=== PATIENT | female | born 1990 | race Caucasian/White ===

== ENCOUNTER 2016-12-01 03:56 | Inpatient (IN) | payer OTHER, BC ==
[2016-12-01] MEDS ORDERED: Sodium Chloride 0.9% 10 ML Syringe FLUSH PRN (08:31)
--- NOTE | 2016-12-01 08:38 | PCM.LDHP ---
L&D History of Present Illness - General Date of Service: 12/01/16 Admit Problem/Dx: Admission Diagnosis/Problem Admission Diagnosis/Problem Source of Information: Patient History Limitations: Reports: No Limitations - History of Present Illness Introduction:: 26 year old at 39+ here for induction of labor. Irregular contractions. H&P Review of Systems - Review of Systems: Review Of Systems: See Below General: Reports: No Symptoms HEENT: Reports: No Symptoms Pulmonary: Reports: No Symptoms Cardiovascular: Reports: No Symptoms Gastrointestinal: Reports: No Symptoms Genitourinary: Reports: No Symptoms Musculoskeletal: Reports: No Symptoms Skin: Reports: No Symptoms Psychiatric: Reports: No Symptoms Neurological: Reports: No Symptoms Hematologic/Lymphatic: Reports: No Symptoms Immunologic: Reports: No Symptoms L&D Exam - Exam Exam: See Below - OB Specific Contraction Intensity: Irritability Movement: Active Presentation: Vertex - Carvajal Score Carvajal Score Cervix Position: Midposition Carvajal Score Consistency: Soft Carvajal Score Effacement: 31-50% Carvajal Score Dilation: 1-2 cm Carvajal Score Infant's Station: -2 Carvajal Score Total: 6 - Exam General: Alert HEENT: Conjunctiva Clear Cardiovascular: Regular Rate, Regular Rhythm Genitourinary: Normal external exam Extremities: Normal Inspection Skin: Warm, Dry Neurological: Cranial Nerves Intact Psychiatric: Alert, Normal Affect Problem List Initiated/Reviewed/Updated: Yes Orders Last 24hrs: Active Orders 24 hr Category Date Time Status Communication Order [RC] ASDIRECTED Care 12/01/16 08:31 Ordered Communication Order [RC] ASDIRECTED Care 12/01/16 08:31 Ordered Communication Order [RC] ASDIRECTED Care 12/01/16 08:31 Ordered Monitoring [RC] INTERMITTENT Care 12/01/16 08:31 Ordered Notify Provider [RC] ASDIRECTED Care 12/01/16 08:31 Ordered Peripheral IV Care [RC] . DIRECTED Care 12/01/16 08:31 Ordered Vaginal Exam [RC] ASDIRECTED Care 12/01/16 08:31 Ordered Vital Signs [RC] ASDIRECTED Care 12/01/16 08:31 Ordered Regular Diet [DIET] Diet 12/01/16 Breakfast Ordered CBC W/O DIFF,HEMOGRAM [HEME] Routine Lab 12/01/16 08:33 Ordered Lactated Ringers [Ringers, Lactated] 1,000 ml Med 12/01/16 08:45 Ordered IV ASDIRECTED Sodium Chloride 0.9% [Saline Flush] Med 12/01/16 08:31 Ordered 10 ml FLUSH ASDIRECTED PRN Peripheral IV Insertion Adult [OM.PC] Routine Oth 12/01/16 08:31 Ordered Medication Orders Lactated Ringer's (Ringers, Lactated) 1,000 mls @ 40 mls/hr IV ASDIRECTED JUDITH Sodium Chloride (Saline Flush) 10 ml FLUSH ASDIRECTED PRN PRN Reason: Keep Vein Open Assessment/Plan Comment:: Term induction. Corbett bulb placed. CBC REgular diet.
[2016-12-01] MEDS ORDERED: Oxytocin/Lactated Ringers 10 UNIT/1,000 ML BAG IV SCH (09:45)
[2016-12-01] MEDS: Lactated Ringers 1,000 ML IV SCH (14:49)
--- NOTE | 2016-12-01 18:58 | PCM.PREANE ---
Preanesthetic Assessment - Procedure Proposed Procedure: Labor epidural - Anesthesia/Transfusion/Family Hx Anesthesia History: No Prior Anesthesia Family History of Anesthesia Reaction: No Transfusion History: No Prior Transfusion(s) - Review of Systems General: No Symptoms Pulmonary: No Symptoms Cardiovascular: No Symptoms Gastrointestinal: Other (GERD) Neurological: No Symptoms Other: Reports: None - Physical Assessment NPO Status Date: 12/01/16 NPO Status Time: 15:00 Respiratory Rate: 20 Vital Signs: Last Vital Signs Temp 37.7 C 12/01/16 08:31 Pulse 85 12/01/16 08:31 Resp 20 12/01/16 08:31 BP 130/86 12/01/16 08:31 Pulse Ox Height: 1.83 m Weight: 87.543 kg ASA Class: 2 Mental Status: Alert & Oriented x3 Thyro-Mental Finger Breadths: 3 Mouth Opening Finger Breadths: 3 ROM/Head Extension: Full Lungs: Clear to auscultation, Normal respiratory effort Cardiovascular: Regular Rate, Regular Rhythm - Lab Values: Laboratory Last Values WBC 8.57 K/mm3 (3.98-10.04) 12/01/16 09:30 RBC 3.50 M/mm3 (3.98-5.22) L 12/01/16 09:30 Hgb 11.2 gm/L (11.2-15.7) 12/01/16 09:30 Hct 32.9 % (34.1-44.9) L 12/01/16 09:30 MCV 94.0 fl (79.4-94.8) 12/01/16 09:30 MCH 32.0 pg (25.6-32.2) 12/01/16 09:30 MCHC 34.0 g/dl (32.2-35.5) 12/01/16 09:30 RDW Std Deviation 41.9 fL (36.4-46.3) 12/01/16 09:30 Plt Count 172 K/mm3 (182-369) L 12/01/16 09:30 MPV 11.0 fl (9.4-12.3) 12/01/16 09:30 - Allergies Allergies/Adverse Reactions: Allergies Allergy/AdvReac Type Severity Reaction Status Date / Time No Known Allergies Allergy Verified 12/01/16 09:34 - Blood Blood Available: No Product(s) Available: None - Anesthesia Plan Pre-Op Medication Ordered: None - Acknowledgements Anesthesia Type Planned: Epidural Pt an Appropriate Candidate for the Planned Anesthesia: Yes Alternatives and Risks of Anesthesia Discussed w Pt/Guardian: Yes Pt/Guardian Understands and Agrees with Anesthesia Plan: Yes PreAnesthesia Questionnaire - Past Health History Medical/Surgical History: Denies Medical/Surgical History - Past Surgical History HEENT Surgical History: Reports: Oral Surgery Other HEENT Surgeries/Procedures: wisdom teeth - SUBSTANCE USE Smoking Status *Q: Never Smoker Second Hand Smoke Exposure: No Recreational Drug Use History: No - HOME MEDS Home Medications: Home Meds PNV95/Ferrous Fumarate/FA [ Tablet] 1 each PO DAILY 12/01/16 [History] - CURRENT (IN HOUSE) MEDS Current Meds: Current Medications Lactated Ringer's (Ringers, Lactated) 1,000 mls @ 40 mls/hr IV ASDIRECTED JUDITH Last Admin: 12/01/16 14:49 Dose: 100 mls/hr Oxytocin/Lactated Ringer's (Pitocin In Lr 10 Units/1,000 Ml) 10 unit in 1,000 mls @ 12 mls/hr IV TITRATE JUDITH; 2 MUNITS/MIN PRN Reason: Protocol Last Titration: 12/01/16 17:35 Dose: 8 munits/min, 48 mls/hr Sodium Chloride (Saline Flush) 10 ml FLUSH ASDIRECTED PRN PRN Reason: Keep Vein Open
[2016-12-01] MEDS ORDERED: ePHEDrine 50 MG/ML SDV IVPUSH PRN (19:10)
[2016-12-01] MEDS ORDERED: fentaNYL 100 MCG/2 ML SDV EPIDUR PRN (19:10)
[2016-12-01] MEDS ORDERED: diphenhydrAMINE 50 MG/ML SDV IVPUSH PRN (19:10)
[2016-12-01] MEDS ORDERED: Ondansetron 4 MG/2 ML SDV IVPUSH PRN (19:10)
[2016-12-01] MEDS ORDERED: Bupivacaine/fentaNYL/NS 100 ML Bag EPIDUR SCH (19:15)
--- NOTE | 2016-12-01 23:41 | PCM.PNLD ---
Labor Progress Note - VS & Meds Vital Signs: Last Vital Signs Temp 37.7 C 12/01/16 08:31 Pulse 85 12/01/16 08:31 Resp 20 12/01/16 18:58 BP 130/86 12/01/16 08:31 Pulse Ox Active Medications: Current Medications Diphenhydramine HCl (Benadryl) 25 mg IVPUSH Q6H PRN PRN Reason: Pruritis Ephedrine Sulfate (Ephedrine Sulfate) 5 mg IVPUSH ASDIRECTED PRN PRN Reason: Hypotension Fentanyl (Sublimaze) 100 mcg EPIDUR Q3H PRN PRN Reason: Pain Last Admin: 12/01/16 19:52 Dose: 100 mcg Fentanyl/Bupivacaine HCl (Fentanyl/Bupivacaine/Ns 2 Mcg-0.125% 100 Ml) 100 ml EPIDUR ASDIRECTED JUDITH Last Admin: 12/01/16 19:54 Dose: 100 ml Lactated Ringer's (Ringers, Lactated) 1,000 mls @ 40 mls/hr IV ASDIRECTED JUDITH Last Admin: 12/01/16 14:49 Dose: 100 mls/hr Oxytocin/Lactated Ringer's (Pitocin In Lr 10 Units/1,000 Ml) 10 unit in 1,000 mls @ 12 mls/hr IV TITRATE JUDITH; 2 MUNITS/MIN PRN Reason: Protocol Last Titration: 12/01/16 17:35 Dose: 8 munits/min, 48 mls/hr Ondansetron HCl (Zofran) 4 mg IVPUSH ONETIME PRN PRN Reason: Nausea/Vomiting Sodium Chloride (Saline Flush) 10 ml FLUSH ASDIRECTED PRN PRN Reason: Keep Vein Open - Uterine Contractions Contraction Intensity: Irritability - Monitoring Heart Rate (FHR) Variability: Moderate (6-25 bmp) Accelerations: Present, 15x15 Decelerations: None Strip Review: Category I - Labor Progress (Free Text) Labor Progress: Corbett bulb still in place. Doing well. Resting between contractions but feeling contractions.
--- NOTE | 2016-12-01 23:43 | PCM.PNLD ---
Labor Progress Note - VS & Meds Vital Signs: Last Vital Signs Temp 37.7 C 12/01/16 08:31 Pulse 85 12/01/16 08:31 Resp 20 12/01/16 18:58 BP 130/86 12/01/16 08:31 Pulse Ox Active Medications: Current Medications Diphenhydramine HCl (Benadryl) 25 mg IVPUSH Q6H PRN PRN Reason: Pruritis Ephedrine Sulfate (Ephedrine Sulfate) 5 mg IVPUSH ASDIRECTED PRN PRN Reason: Hypotension Fentanyl (Sublimaze) 100 mcg EPIDUR Q3H PRN PRN Reason: Pain Last Admin: 12/01/16 19:52 Dose: 100 mcg Fentanyl/Bupivacaine HCl (Fentanyl/Bupivacaine/Ns 2 Mcg-0.125% 100 Ml) 100 ml EPIDUR ASDIRECTED JUDITH Last Admin: 12/01/16 19:54 Dose: 100 ml Lactated Ringer's (Ringers, Lactated) 1,000 mls @ 40 mls/hr IV ASDIRECTED JUDITH Last Admin: 12/01/16 14:49 Dose: 100 mls/hr Oxytocin/Lactated Ringer's (Pitocin In Lr 10 Units/1,000 Ml) 10 unit in 1,000 mls @ 12 mls/hr IV TITRATE JUDITH; 2 MUNITS/MIN PRN Reason: Protocol Last Titration: 12/01/16 17:35 Dose: 8 munits/min, 48 mls/hr Ondansetron HCl (Zofran) 4 mg IVPUSH ONETIME PRN PRN Reason: Nausea/Vomiting Sodium Chloride (Saline Flush) 10 ml FLUSH ASDIRECTED PRN PRN Reason: Keep Vein Open - Uterine Contractions Contraction Intensity: Moderate to Strong Uterine Resting Tone: Soft - Monitoring Heart Rate (FHR) Variability: Moderate (6-25 bmp) Accelerations: Present, 15x15 Decelerations: None Strip Review: Category I - Vaginal Exam Dilation (cm): 4 Effacement (Percent): 90 Station: -2 Cervical Position: Midposition Sterile Vaginal Exam Performed By: Patricia Davis Vaginal Exam Comment: AROM clear fluid. - Labor Progress (Free Text) Labor Progress: Term induction. Contractions becoming more painful. AROM clear fluid. Epidural prn. Anticipate .
[2016-12-02] MEDS ORDERED: Benzocaine/Menthol 20%-0.5% Spray 56 GM Canister TOP PRN (00:03)
[2016-12-02] MEDS ORDERED: Acetaminophen 325 MG Tab PO PRN (00:03)
[2016-12-02] MEDS ORDERED: Bupivacaine 0.25% 10 ML SDV ONE (00:03)
[2016-12-02] MEDS ORDERED: Witch Hazel Medicated Pads 100/Jar TOP PRN (00:03)
[2016-12-02] MEDS ORDERED: Docusate Sodium 100 MG Cap PO PRN (00:03)
[2016-12-02] MEDS ORDERED: Lanolin 100% Cream 7 GM Tube TOP PRN (00:03)
[2016-12-02] MEDS ORDERED: Ibuprofen 600 MG Tab PO PRN (00:03)
[2016-12-02] MEDS: Lactated Ringers 1,000 ML IV SCH (00:29)
--- NOTE | 2016-12-02 14:42 | PCM48HPAN ---
Post Anesthesia Note - EVALUATION WITHIN 48HRS OF ANESTHETIC Vital Signs in Normal Range: Yes Patient Participated in Evaluation: Yes Respiratory Function Stable: Yes Airway Patent: Yes Cardiovascular Function Stable: Yes Hydration Status Stable: Yes Pain Control Satisfactory: Yes Nausea and Vomiting Control Satisfactory: Yes Mental Status Recovered: Yes
--- NOTE | 2016-12-02 14:56 | PCM.PNPP ---
- General Info Date of Service: 12/02/16 Functional Status: Reports: pain controlled - Review of Systems General: Reports: No Symptoms HEENT: Reports: no symptoms Pulmonary: Reports: no symptoms Cardiovascular: Reports: No Symptoms Gastrointestinal: Reports: No symptoms Genitourinary: Reports: no symptoms Musculoskeletal: Reports: no symptoms Skin: Reports: no symptoms Neurological: Reports: No Symptoms Psychiatric: Reports: no symptoms - General Info Date of Service: 12/02/16 - Patient Data Vital Signs - most recent: Last Vital Signs Temp 36.6 C 12/02/16 09:00 Pulse 76 12/02/16 09:00 Resp 16 12/02/16 09:00 BP 126/70 12/02/16 09:00 Pulse Ox 97 12/02/16 09:00 Weight - most recent: 87.543 kg I&O - last 24 hours: Intake & Output 12/01/16 12/02/16 12/02/16 22:59 06:59 14:59 Intake Total 1999 120 Balance 1999 120 Med Orders - Current: Current Medications Acetaminophen (Tylenol) 650 mg PO Q6H PRN PRN Reason: mild pain or fever Benzocaine/Menthol (Dermoplast Pain Relief [place]) 0 gm TOP ASDIRECTED PRN PRN Reason: Perineal Comfort Measure Last Admin: 12/02/16 00:27 Dose: 1 applic Docusate Sodium (Colace) 100 mg PO BID PRN PRN Reason: Constipation Emollient Ointment (Lansinoh Hpa) 0 gm TOP ASDIRECTED PRN PRN Reason: Sore Nipples Oxytocin/Lactated Ringer's (Pitocin In Lr 10 Units/1,000 Ml) 10 unit in 1,000 mls @ 500 mls/hr IV ONETIME ONE PRN Reason: Protocol Stop: 12/03/16 01:14 Ibuprofen (Motrin) 600 mg PO Q6H PRN PRN Reason: Mild pain or fever Witch Ruth (Tucks) 1 pad TOP ASDIRECTED PRN PRN Reason: Hemorrhoid pain Last Admin: 12/02/16 00:27 Dose: 1 applic Discontinued Medications Diphenhydramine HCl (Benadryl) 25 mg IVPUSH Q6H PRN PRN Reason: Pruritis Ephedrine Sulfate (Ephedrine Sulfate) 5 mg IVPUSH ASDIRECTED PRN PRN Reason: Hypotension Fentanyl (Sublimaze) 100 mcg EPIDUR Q3H PRN PRN Reason: Pain Last Admin: 12/01/16 19:52 Dose: 100 mcg Fentanyl/Bupivacaine HCl (Fentanyl/Bupivacaine/Ns 2 Mcg-0.125% 100 Ml) 100 ml EPIDUR ASDIRECTED JUDITH Last Admin: 12/01/16 19:54 Dose: 100 ml Lactated Ringer's (Ringers, Lactated) 1,000 mls @ 40 mls/hr IV ASDIRECTED JUDITH Last Admin: 12/02/16 00:29 Dose: 100 mls/hr Oxytocin/Lactated Ringer's (Pitocin In Lr 10 Units/1,000 Ml) 10 unit in 1,000 mls @ 12 mls/hr IV TITRATE JUDITH; 2 MUNITS/MIN PRN Reason: Protocol Last Titration: 12/01/16 17:35 Dose: 8 munits/min, 48 mls/hr Ondansetron HCl (Zofran) 4 mg IVPUSH ONETIME PRN PRN Reason: Nausea/Vomiting Sodium Chloride (Saline Flush) 10 ml FLUSH ASDIRECTED PRN PRN Reason: Keep Vein Open - Infant Interaction Disposition, : at Bedside Support Person: - Recovery Exam Fundal Tone: Firm Fundal Level: 1 Fingerbreadths Below Umbilicus Fundal Placement: Midline Lochia Amount: Small Lochia Color: Rubra/Red Perineum Description: Other (see below) Other Perinuem Description: 2nd degree laceration with repair Episiotomy/Laceration: Approximated Bladder Status: Voiding - Problem List Review Problem List Initiated/Reviewed/Updated: Yes - My Orders Last 24 Hours: My Active Orders 12/02/16 00:03 Activity as Tolerated [RC] .PRN Vital Signs [RC] 04,12,20 Acetaminophen [Tylenol] 650 mg PO Q6H PRN Benzocaine/Menthol [Dermoplast Pain Relief [place]] See Dose Instructions TOP ASDIRECTED PRN Docusate Sodium [Colace] 100 mg PO BID PRN Ibuprofen [Motrin] 600 mg PO Q6H PRN Lanolin [Lansinoh HPA] See Dose Instructions TOP ASDIRECTED PRN Witch Ruth [Tucks] 1 pad TOP ASDIRECTED PRN Assess Lochia [WOMSER] Per Unit Routine Assess Uterine Involution [WOMSER] Per Unit Routine Breast Pump [WOMSER] Per Unit Routine Heat Therapy [OM.PC] PRN Medication Administration Instruction [OM.PC] Routine Perineal Care [OM.PC] Per Unit Routine Sitz Bath [OM.PC] Per Unit Routine 12/02/16 03:24 Code Status [Resuscitation Status] Routine 12/02/16 23:15 Oxytocin/Lactated Ringers [Pitocin in LR 10 Units/1,000 ML] 10 unit in 1,000 ml IV ONETIME 12/03/16 00:03 Heat Therapy [OM.PC] PRN - Assessment Assessment:: PPD1. Doing great. Minimal bleeding. Routine care. - Plan Plan:: Term induction. Corbett bulb placed. CBC REgular diet.
[2016-12-02] MEDS ORDERED: Oxytocin/Lactated Ringers 10 UNIT/1,000 ML BAG IV ONE (23:15)
--- NOTE | 2016-12-03 06:55 | PCM.DCSUM1 ---
Discharge Summary - Discharge Data Discharge Date: 12/03/16 Discharge Disposition: Home, Self-Care 01 Condition: Good - Patient Summary/Data Hospital Course: Routine uncomplicated induction with conte bulb, pitocin, and AROM. Uncomplicated . - Patient Instructions Diet: Heart Healthy Diet Activity: No Strenuous Activities Driving: May Drive Today Showering/Bathing: May Shower Wound/Incision Care: Keep Operative Site/Wound Site Clean and Dry Notify Provider of: Fever, Increased Pain, Swelling and Redness, Drainage, Nausea and/or Vomiting - Discharge Plan Home Medications: Home Meds PNV95/Ferrous Fumarate/FA [ Tablet] 1 each PO DAILY 12/01/16 [History] Referrals: Patricia Davis MD [Primary Care Provider] - (6 weeks) - General Info Date of Service: 12/03/16 Functional Status: Reports: pain controlled - Review of Systems General: Reports: No Symptoms HEENT: Reports: no symptoms Pulmonary: Reports: no symptoms Cardiovascular: Reports: No Symptoms Gastrointestinal: Reports: No symptoms Genitourinary: Reports: no symptoms Musculoskeletal: Reports: no symptoms Skin: Reports: no symptoms Neurological: Reports: No Symptoms Psychiatric: Reports: no symptoms - Patient Data Vitals - Most Recent: Last Vital Signs Temp 36.7 C 12/02/16 21:00 Pulse 70 12/02/16 21:00 Resp 15 12/02/16 21:00 BP 133/77 12/02/16 21:00 Pulse Ox 100 12/02/16 21:00 Weight - Most Recent: 87.543 kg I&O - Last 24 hours: Intake & Output 12/02/16 12/02/16 12/03/16 14:59 22:59 06:59 Intake Total 120 Balance 120 Med Orders - Current: Current Medications Acetaminophen (Tylenol) 650 mg PO Q6H PRN PRN Reason: mild pain or fever Benzocaine/Menthol (Dermoplast Pain Relief [place]) 0 gm TOP ASDIRECTED PRN PRN Reason: Perineal Comfort Measure Last Admin: 12/02/16 00:27 Dose: 1 applic Docusate Sodium (Colace) 100 mg PO BID PRN PRN Reason: Constipation Emollient Ointment (Lansinoh Hpa) 0 gm TOP ASDIRECTED PRN PRN Reason: Sore Nipples Ibuprofen (Motrin) 600 mg PO Q6H PRN PRN Reason: Mild pain or fever Witsherif Miranda (Tucks) 1 pad TOP ASDIRECTED PRN PRN Reason: Hemorrhoid pain Last Admin: 12/02/16 00:27 Dose: 1 applic Discontinued Medications Diphenhydramine HCl (Benadryl) 25 mg IVPUSH Q6H PRN PRN Reason: Pruritis Ephedrine Sulfate (Ephedrine Sulfate) 5 mg IVPUSH ASDIRECTED PRN PRN Reason: Hypotension Fentanyl (Sublimaze) 100 mcg EPIDUR Q3H PRN PRN Reason: Pain Last Admin: 12/01/16 19:52 Dose: 100 mcg Fentanyl/Bupivacaine HCl (Fentanyl/Bupivacaine/Ns 2 Mcg-0.125% 100 Ml) 100 ml EPIDUR ASDIRECTED JUDITH Last Admin: 12/01/16 19:54 Dose: 100 ml Lactated Ringer's (Ringers, Lactated) 1,000 mls @ 40 mls/hr IV ASDIRECTED JUDITH Last Admin: 12/02/16 00:29 Dose: 100 mls/hr Oxytocin/Lactated Ringer's (Pitocin In Lr 10 Units/1,000 Ml) 10 unit in 1,000 mls @ 12 mls/hr IV TITRATE JUDITH; 2 MUNITS/MIN PRN Reason: Protocol Last Titration: 12/01/16 17:35 Dose: 8 munits/min, 48 mls/hr Oxytocin/Lactated Ringer's (Pitocin In Lr 10 Units/1,000 Ml) 10 unit in 1,000 mls @ 500 mls/hr IV ONETIME ONE PRN Reason: Protocol Stop: 12/03/16 01:14 Ondansetron HCl (Zofran) 4 mg IVPUSH ONETIME PRN PRN Reason: Nausea/Vomiting Sodium Chloride (Saline Flush) 10 ml FLUSH ASDIRECTED PRN PRN Reason: Keep Vein Open - Exam General: Reports: alert, oriented HEENT: Reports: Pupils equal, Pupils reactive, EOMI, Mucous membr. moist/pink Neck: Reports: supple Lungs: Reports: Clear to auscultation, Normal respiratory effort Cardiovascular: Reports: Regular Rate, Regular Rhythm GI/Abdominal Exam: Normal Bowel Sounds, Soft, Non-Tender, No Organomegaly, No Distention, No Abnormal Bruit, No Mass, Pelvis Stable Rectal (Female) Exam: Normal Exam, Normal Rectal Tone Extremities: Normal Inspection, Normal Range of Motion, Non-Tender, No Pedal Edema, Normal Capillary Refill Skin: Reports: warm, dry, intact Wound/Incisions: Reports: healing well Neurological: Reports: no new focal deficit Psy/Mental Status: Reports: alert, normal affect, normal mood *Q Meaningful Use (DIS) - VTE *Q VTE Criteria *Q: - Stroke *Q Stroke Criteria *Q: - AMI *Q AMI Criteria *Q:
[2016-12-03 11:54] VITALS: BP 120/77
== END 2016-12-03 14:00 | disposition home or self-care (01) | DRG 775 ==
LOC: UNDOADMOB 06:51 → JD.OB 06:51 → OBSVTOIN 23:14 → JD.MS 23:14 → JD.OB 12-02 14:58
PROVIDERS: ADMIT Obstetrics & Gynecology; ATTEND Obstetrics & Gynecology
PROC: 10E0XZZ Delivery of Products of Conception, External Approach (ICD-10-PCS; principal; 2016-12-01)
PROC: 0KQM0ZZ Repair Perineum Muscle, Open Approach (ICD-10-PCS; 2016-12-01)
PROC: 3E033VJ Introduction of Other Hormone into Peripheral Vein, Percutaneous Approach (ICD-10-PCS; 2016-12-01)
PROC: 10907ZC Drainage of Amniotic Fluid, Therapeutic from Products of Conception, Via Natural or Artificial Opening (ICD-10-PCS; 2016-12-01)
PROC: 00HU33Z Insertion of Infusion Device into Spinal Canal, Percutaneous Approach (ICD-10-PCS; 2016-12-01)
PROC: 3E0R3CZ (ICD-10-PCS; 2016-12-01)
DX: O70.1 Second degree perineal laceration during delivery (principal); Z37.0 Single live birth; Z3A.40 40 weeks gestation of pregnancy
CPT/HCPCS: 36415; 85027; A9270-GY; J2590; J3010; J7120

== ENCOUNTER 2018-08-03 12:11 | Inpatient (IN) | payer BC ==
[2018-08-03] MEDS ORDERED: Sodium Chloride 0.9% 10 ML Syringe FLUSH PRN (12:34)
[2018-08-03] MEDS ORDERED: Ondansetron 4 MG/2 ML SDV IVPUSH PRN (12:34)
[2018-08-03] MEDS ORDERED: Nalbuphine 20 MG/ML 1 ML Syringe IVPUSH PRN (12:34)
[2018-08-03] MEDS: Lactated Ringers 1,000 ML IV SCH ×2 (12:45→13:45)
[2018-08-03] MEDS ORDERED: Oxytocin/Lactated Ringers 10 UNIT/1,000 ML BAG IV SCH (12:45)
[2018-08-03] MEDS ORDERED: fentaNYL 100 MCG/2 ML SDV EPIDUR PRN (12:57)
[2018-08-03] MEDS ORDERED: ePHEDrine 50 MG/ML SDV IVPUSH PRN (12:57)
[2018-08-03] MEDS ORDERED: diphenhydrAMINE 50 MG/ML SDV IVPUSH PRN (12:57)
--- NOTE | 2018-08-03 12:57 | PCM.PREANE ---
Preanesthetic Assessment - Procedure Proposed Procedure: anya - Anesthesia/Transfusion/Family Hx Anesthesia History: Prior Anesthesia Without Reaction Family History of Anesthesia Reaction: No Transfusion History: No Prior Transfusion(s) - Review of Systems General: No Symptoms Pulmonary: No Symptoms Cardiovascular: No Symptoms Gastrointestinal: No Symptoms Neurological: No Symptoms Other: Reports: None - Physical Assessment Pulse: 81 O2 Sat by Pulse Oximetry: 100 Respiratory Rate: 16 Blood Pressure: 137/84 Temperature: 99.7 F Height: 6 ft Weight: 85.729 kg ASA Class: 2 Mental Status: Alert & Oriented x3 Airway Class: Mallampati = 1 Dentition: Reports: Normal Dentition Thyro-Mental Finger Breadths: 3 Mouth Opening Finger Breadths: 3 ROM/Head Extension: Full Lungs: Clear to Auscultation, Normal Respiratory Effort Cardiovascular: Regular Rate, Regular Rhythm - Allergies Allergies/Adverse Reactions: Allergies Allergy/AdvReac Type Severity Reaction Status Date / Time No Known Allergies Allergy Verified 12/01/16 09:34 - Blood Blood Available: No - Acknowledgements Anesthesia Type Planned: Epidural Pt an Appropriate Candidate for the Planned Anesthesia: Yes Alternatives and Risks of Anesthesia Discussed w Pt/Guardian: Yes Pt/Guardian Understands and Agrees with Anesthesia Plan: Yes PreAnesthesia Questionnaire - Past Health History Medical/Surgical History: Denies Medical/Surgical History Cardiovascular History: Reports: None Respiratory History: Reports: None Gastrointestinal History: Reports: GERD (with preg) : 2 Para: 1 - Past Surgical History HEENT Surgical History: Reports: Oral Surgery Other HEENT Surgeries/Procedures: wisdom teeth - SUBSTANCE USE Smoking Status *Q: Never Smoker Tobacco Use Within Last Twelve Months: No Second Hand Smoke Exposure: No Days Per Week of Alcohol Use: 0 Recreational Drug Use History: No - HOME MEDS Home Medications: Home Meds PNV95/Ferrous Fumarate/FA [ Tablet] 1 each PO DAILY 12/01/16 [History] - CURRENT (IN HOUSE) MEDS Current Meds: Current Medications Lactated Ringer's (Ringers, Lactated) 1,000 mls @ 100 mls/hr IV ASDIRECTED JUDITH Oxytocin/Lactated Ringer's (Pitocin In Lr 10 Units/1,000 Ml) 10 unit in 1,000 mls @ 100 mls/hr IV .CONTINUOUS JUDITH Nalbuphine HCl (Nubain) 10 mg IVPUSH Q2H PRN PRN Reason: pain Ondansetron HCl (Zofran) 4 mg IVPUSH Q4H PRN PRN Reason: Nausea/Vomiting Sodium Chloride (Saline Flush) 10 ml FLUSH ASDIRECTED PRN PRN Reason: Keep Vein Open
[2018-08-03] MEDS ORDERED: fentaNYL/Bupivacaine-NS 2 MCG/ML-0.125%/PF 100 ML Bag EP SCH (13:00)
[2018-08-03] MEDS ORDERED: Witch Hazel Medicated Pads 40/Jar TOP PRN (15:21)
[2018-08-03] MEDS ORDERED: Ibuprofen 600 MG Tab PO PRN (15:21)
[2018-08-03] MEDS ORDERED: Lanolin 100% Cream 7 GM Tube TOP PRN (15:21)
[2018-08-03] MEDS ORDERED: Benzocaine/Menthol 20%-0.5% Spray 56 GM Canister TOP PRN (15:21)
[2018-08-03] MEDS ORDERED: Acetaminophen 325 MG Tab PO PRN (15:21)
--- NOTE | 2018-08-03 15:55 | PCM.SN ---
- Free Text/Narrative Note: Delivery note: Katharina is a 28-year-old 2 now para 2002 white female at 40-0/7 weeks gestational age with an JOSE of 08/03/2018 who was admitted midday on 08/03/2018 in active labor. Started labor at 0800 hrs. On 08/03/2018. On admission she was 5-6 cm dilated with bulging bag of mcnally. heart tones normal. Patient received an epidural at for analgesia. She progressed rapidly to complete cervical dilation. At 1429 hrs. she delivered a viable, allan, female with Apgars of 8 and 9, a weight of 3500 g (7 pounds 11.5 ounces) and a length of 20 inches. Baby delivered in a direct occiput anterior position, was placed on mom' s abdomen and nose and mouth were bulb suctioned. The cords locked pulsate 1 minute and then was clamped 2 and was then cut by the baby's father. The cord was obtained. The umbilical cord had 3 vessels. The perineum and vagina were intact and no suturing was required. Placenta delivered in a Munson presentation, appeared intact and complete and was discarded per patient desire. S1 and blood loss was 100 mL. Patient plans to breast-feed.
--- NOTE | 2018-08-03 15:57 | PCM.LDHP ---
L&D History of Present Illness - General Date of Service: 08/03/18 Admit Problem/Dx: Admission Diagnosis/Problem Admission Diagnosis/Problem 08/03/18 15:55 Katharina is a 28-year-old 2 para 1001 white female was admitted on mid day on 08/03/2018 in active labor. 5 cm dilated, niels every 3 minutes and uncomfortable with contractions. Bulging bag mcnally present. Her JOSE is 2018 placing her at 40-0/7 weeks gestational age upon admission. 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 JOSE is determined by a certain last menstrual period starting 10/27/2017 and supported by 2 ultrasounds done in the second trimester and one done in the first trimester. Dates of the ultrasounds are 01/12/2018, 03/15/2018 and 04/15/2018. Patient had menarche at approximately age 13.. Patient has some irregular cycles. Her obstetric history consists of male infant born 12/01/2017 at 40 weeks gestational age after 3 hours of labor. 7 lbs. 11 oz. child named Giorgio. course patient is seen for first visit on 01/12/2018 at 11 weeks gestational age. She was seen on a regular basis. However her fundal height growth was appropriate. Weight increased from 156 up to 189 pounds for a 33 pound weight gain. Patient plans to breast-feed. She declines genetic testing. Her group B strep screen is negative. She had contractions on but fibronectin was negative. She plans on epidural. T dap was given on 05/27/2018. MMR showed immunity. laboratory testing shows blood to be B+ with negative GA screen. First medical labs showed hemoglobin 12.7 g/dL and platelets 235,000. She is rubella immune. RPR is nonreactive. Urine culture is negative. Hepatitis B surface antigen and HIV assays were both negative. Chlamydia and gonorrhea assays are both negative. Second trimester labs showed hemoglobin 11.1 g/dL and it was 197, 000. One-hour GTT was 66. Group B strep screen was negative. Allergies: seasonal allergies only Medications: 1. lens 1 per day 2. Iron. Inform ferrous sulfate 325 mg per day. Past medical history: Normal spontaneous vaginal delivery 1 Past surgical history: Prepped 1. Wasn't to the extraction 2008. Family history: Mother is alive and well. Mother is alive and well but on high blood pressure medication. One brother 1 sister alive and well. Maternal grandfather with history of heart disease. Maternal grandmother mother with good health. Paternal grandfather is alive but with COPD. Paternal grandmother is secondary to complications to 2 diabetes and heart disease. There is no family history of cancer, heart disease otherwise, blood clotting or bleeding disorders or problems. She also denies any anesthesia problems. Social history: Patient is : She lives in [facility]. She does not use any significant most alcohol, drugs or tobacco. 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 Her is Contreras Rodríguez Review of systems: In general patient has no complaints. She is niels. She does feel baby move. Skin: Negative Lungs: No infectious symptoms or shortness of breath Cardiovascular: No chest pain or exercise intolerance Breasts: No lumps, changes in size, pain, dimpling, discharge or axillary or supraclavicular concerns. GI: Negative : Negative Musculoskeletal: Negative Neurological: Negative In general the patient is well-developed, well-nourished, pleasant female of stated age in no acute distress. On last evaluation in the clinic patient's blood pressure was 112/72. Weight was 189. heart rate is 150. Height is 6 feet 0 inches. Prepregnancy body mass index is 20.7 and prepregnancy weight was 156 pounds. Skin is warm dry without lesions. HEENT, neck and back within normal limits. Lungs are clear with good breath sounds in all lung gtz. Cardiovascular exam shows regular and rhythm without murmurs. Abdomen is flat, soft, nontender without masses or organomegaly. Positive bowel sounds are noted. No inguinal lymphadenopathy or hernias are noted. Genital per speculum bimanual shows normal external genitalia, BUS, pubic hair pattern. There is normal support, secretions and estrogenization vagina. Uterus is small, anterior, freely mobile, without parametrial induration or adnexal abnormalities. Extremities and neurological exam are grossly within normal limits. - History of Present Illness Pain Score: 6 - Related Data Allergies/Adverse Reactions: Allergies Allergy/AdvReac Type Severity Reaction Status Date / Time No Known Allergies Allergy Verified 12/01/16 09:34 Home Medications: Home Meds PNV95/Ferrous Fumarate/FA [ Tablet] 1 each PO DAILY 12/01/16 [History] Acetaminophen [Tylenol] 650 mg PO Q4H PRN tablet 08/04/18 [Rx] Ibuprofen [Motrin] 600 mg PO Q4H PRN tablet 08/04/18 [Rx] Past Medical History - Past Health History Medical/Surgical History: Denies Medical/Surgical History Cardiovascular History: Reports: None Respiratory History: Reports: None Gastrointestinal History: Reports: GERD (with preg) 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 SERVICES CASE MANAGER History: Reports: - Past Surgical History HEENT Surgical History: Reports: Oral Surgery Other HEENT Surgeries/Procedures: wisdom teeth Social & Family History - Family History Family Medical History: Noncontributory - Tobacco Use Smoking Status *Q: Never Smoker Second Hand Smoke Exposure: No - Caffeine Use Caffeine Use: Reports: None - Alcohol Use Days Per Week of Alcohol Use: 0 - Recreational Drug Use Recreational Drug Use: No H&P Review of Systems - Review of Systems: Review Of Systems: See Below L&D Exam - Exam Exam: See Below - Vital Signs Vital Signs: Last Vital Signs Temp 37.6 C 08/03/18 12:57 Pulse 81 08/03/18 12:57 Resp 16 08/03/18 12:57 BP 137/84 08/03/18 12:57 Pulse Ox 100 08/03/18 12:57 Weight: 85.729 kg - Patient Data Lab Results Last 24 hrs: Laboratory Results - last 24 hr 08/03/18 Range/Units 12:50 WBC 9.33 (3.98-10.04) K/mm3 RBC 3.73 L (3.98-5.22) M/mm3 Hgb 11.9 (11.2-15.7) gm/L Hct 34.7 (34.1-44.9) % MCV 93.0 (79.4-94.8) fl MCH 31.9 (25.6-32.2) pg MCHC 34.3 (32.2-35.5) g/dl RDW Std Deviation 43.0 (36.4-46.3) fL Plt Count 202 (182-369) K/mm3 MPV 10.2 (9.4-12.3) fl Neut % (Auto) 77.5 H (34.0-71.1) % Lymph % (Auto) 16.2 L (19.3-51.7) % [place] % (Auto) 5.5 (4.7-12.5) % Eos % (Auto) 0.5 L (0.7-5.8) Baso % (Auto) 0.2 (0.1-1.2) % Neut # (Auto) 7.23 H (1.56-6.13) K/mm3 Lymph # (Auto) 1.51 (1.18-3.74) K/mm3 [place] # (Auto) 0.51 H (0.24-0.36) K/mm3 Eos # (Auto) 0.05 (0.04-0.36) K/mm3 Baso # (Auto) 0.02 (0.01-0.08) K/mm3 Result Diagrams: 08/03/18 12:50 Problem List Initiated/Reviewed/Updated: Yes Orders Last 24hrs: Active Orders 24 hr Category Date Time Status Activity as Tolerated [RC] PER UNIT ROUTINE Care 08/03/18 15:21 Active Heart Tones [RC] ASDIRECTED Care 08/03/18 12:35 Active Non Stress Test [RC] PER UNIT ROUTINE Care 08/03/18 12:34 Active Vital Signs [RC] ASDIRECTED Care 08/03/18 15:21 Active Regular Diet [DIET] Diet 08/03/18 Dinner Active RAPID PLASMA REAGIN,RPR [CHEM] Routine Lab 08/03/18 12:50 Received Acetaminophen [Tylenol] Med 08/03/18 15:21 Active 650 mg PO Q4H PRN Benzocaine/Menthol [Dermoplast Pain Relief [place]] Med 08/03/18 15:21 Active See Dose Instructions TOP ASDIRECTED PRN Ibuprofen [Motrin] Med 08/03/18 15:21 Active 600 mg PO Q4H PRN Lanolin [Lansinoh HPA] Med 08/03/18 15:21 Active See Dose Instructions TOP ASDIRECTED PRN Vit with Ca/FA/Iron [ Plus Iron] Med 08/04/18 09:00 Active 1 each PO DAILY Witch Ruth [Tucks] Med 08/03/18 15:21 Active 1 pad TOP ASDIRECTED PRN Assess Lochia [WOMSER] Per Unit Routine Oth 08/03/18 15:21 Ordered Assess Uterine Involution [WOMSER] Per Unit Routine Oth 08/03/18 15:21 Ordered Breast Pump [WOMSER] Per Unit Routine Oth 08/03/18 15:21 Ordered Heat Therapy [OM.PC] PRN Oth 08/03/18 15:30 Ordered Heat Therapy [OM.PC] PRN Oth 08/04/18 15:30 Ordered Ice Therapy [OM.PC] Per Unit Routine Oth 08/03/18 15:21 Ordered Medication Administration Instruction [OM.PC] Routine Oth 08/03/18 15:21 Ordered Perineal Care [OM.PC] Per Unit Routine Oth 08/03/18 15:21 Ordered Sitz Bath [OM.PC] Per Unit Routine Oth 08/03/18 15:21 Ordered Resuscitation Status Routine Resus Stat 08/03/18 12:34 Ordered Medication Orders Acetaminophen (Tylenol) 650 mg PO Q4H PRN PRN Reason: mild pain or fever Benzocaine/Menthol (Dermoplast Pain Relief [place]) 0 gm TOP ASDIRECTED PRN PRN Reason: Perineal Comfort Measure Emollient Ointment (Lansinoh Hpa) 0 gm TOP ASDIRECTED PRN PRN Reason: Sore Nipples Ibuprofen (Motrin) 600 mg PO Q4H PRN PRN Reason: Mild pain or fever Prenat Multivit/[place]/Iron/Folic Ac ( Plus Iron) 1 each PO DAILY JUDITH Asya Miranda (Tucks) 1 pad TOP ASDIRECTED PRN PRN Reason: Pain Assessment/Plan Comment:: 1. 40-0/7 week intrauterine with due date 08/03/2018 in active labor with advanced cervical dilation and prepped 2. Group B strep screen negative. 3. Patient plans to breast-feed 4. Patient desires epidural in labor. Patient is up-to-date regarding her Tdap, her MMR and her flu shot Plan: 1. Anticipate normal spontaneous vaginal 2. Epidural for pain control labor and delivery 3. Support breast-feeding decision 4. RPR upon admission along with CBC.
[2018-08-03] MEDS ORDERED: Bupivacaine 0.25% 10 ML SDV ONE (22:00)
[2018-08-04] MEDS ORDERED: Prenatal Multivitamin with Calcium/Folic Acid/Iron Tab PO SCH (09:00)
[2018-08-04 15:04] VITALS: BP 118/67
--- NOTE | 2018-08-04 17:52 | PCM.DCSUM1 ---
Discharge Summary - Hospital Course Free Text/Narrative:: Katharina is a 28-year-old 2 now para 2002 white female at 40-0/7 weeks gestational age with an JOSE of 08/03/2018 who was admitted midday on 08/03/2018 in active labor. Started labor at 0800 hrs. On 08/03/2018. On admission she was 5-6 cm dilated with bulging bag of mcnally. heart tones normal. Patient received an epidural at for analgesia. She progressed rapidly to complete cervical dilation. At 1429 hrs. she delivered a viable, allan, female with Apgars of 8 and 9, a weight of 3500 g (7 pounds 11.5 ounces) and a length of 20 inches. Baby delivered in a direct occiput anterior position, was placed on mom' s abdomen and nose and mouth were bulb suctioned. The cords locked pulsate 1 minute and then was clamped 2 and was then cut by the baby's father. The cord was obtained. The umbilical cord had 3 vessels. The perineum and vagina were intact and no suturing was required. Placenta delivered in a [place] presentation, appeared intact and complete and was discarded per patient desire. S1 and blood loss was 100 mL. Patient plans to breast-feed. Patient doing well . Plans to go home today. Condition good. Diagnosis: Stroke: No - Discharge Data Discharge Date: 08/04/18 Discharge Disposition: Home, Self-Care 01 Condition: Good - Patient Instructions Diet: Regular Diet as Tolerated (Nursing diet with increase calories and calcium is recommended) Activity: As Tolerated (No [place] or tampons till bleeding resolves) Driving: May Drive Today Showering/Bathing: May Shower (May shower or take a bath.) Notify Provider of: Fever, Increased Pain, Swelling and Redness, Nausea and/or Vomiting - Discharge Plan Home Medications: Home Meds PNV95/Ferrous Fumarate/FA [ Tablet] 1 each PO DAILY 12/01/16 [History] Acetaminophen [Tylenol] 650 mg PO Q4H PRN tablet 08/04/18 [Rx] Ibuprofen [Motrin] 600 mg PO Q4H PRN tablet 08/04/18 [Rx] Referrals: Jerel Martinez MD [Primary Care Provider] - ([facility] - Discharge Summary/Plan Comment DC Time >30 min.: No Discharge Summary/Plan Comment: Discharge instructions: 1. Discharge home 2. Diet, activity and follow-up discussed with patient. Recommend nursing diet with increased calories and calcium. 3. Precautions given concern increased pain, bleeding, temperature, signs/ symptoms of DVT/PE. 4. Medications per home medication was printed, discussed with and given to the patient. 5. Return to clinic-Dr. Martinez[facility] in 2 weeks. Diagnosis: Term -delivered Condition: Good - Patient Data Vitals - Most Recent: Last Vital Signs Temp 37.3 C 08/04/18 14:40 Pulse 70 08/04/18 14:40 Resp 16 08/04/18 14:40 BP 118/67 08/04/18 14:40 Pulse Ox 98 08/04/18 14:40 Weight - Most Recent: 85.729 kg I&O - Last 24 hours: Intake & Output 08/04/18 08/04/18 08/04/18 06:59 14:59 22:59 Intake Total 120 Balance 120 Lab Results - Last 24 hrs: Laboratory Results - last 24 hr 08/03/18 Range/Units 12:50 RPR Non-reactive (NONREACTIVE) Med Orders - Current: Current Medications Acetaminophen (Tylenol) 650 mg PO Q4H PRN PRN Reason: mild pain or fever Benzocaine/Menthol (Dermoplast Pain Relief [place]) 0 gm TOP ASDIRECTED PRN PRN Reason: Perineal Comfort Measure Emollient Ointment (Lansinoh Hpa) 0 gm TOP ASDIRECTED PRN PRN Reason: Sore Nipples Ibuprofen (Motrin) 600 mg PO Q4H PRN PRN Reason: Mild pain or fever Prenat Multivit/Ranch Supervisor/Iron/Folic Ac ( Plus Iron) 1 each PO DAILY JUDITH Last Admin: 08/04/18 08:45 Dose: 1 each Witch Ruth (Tucks) 1 pad TOP ASDIRECTED PRN PRN Reason: Pain Discontinued Medications Bupivacaine HCl (Sensorcaine-Mpf 0.25%) 20 ml .ROUTE .STK-MED ONE Stop: 08/03/18 22:01 Diphenhydramine HCl (Benadryl) 25 mg IVPUSH Q6H PRN PRN Reason: pruritis Ephedrine Sulfate (Ephedrine Sulfate) 5 mg IVPUSH ASDIRECTED PRN PRN Reason: Hypotension Fentanyl (Sublimaze) 100 mcg EPIDUR Q3H PRN PRN Reason: Pain Last Admin: 08/03/18 13:18 Dose: 100 mcg Fentanyl/Bupivacaine HCl (Sssugihg-Xrzba-Ie 2 Mcg/Ml-0.125%) 100 ml EP ASDIRECTED [facility] Last Admin: 08/03/18 13:18 Dose: 100 ml Lactated Ringer's (Ringers, Lactated) 1,000 mls @ 100 mls/hr IV ASDIRECTED [facility] Last Admin: 08/03/18 13:45 Dose: 100 mls/hr Oxytocin/Lactated Ringer's (Pitocin In Lr 10 Units/1,000 Ml) 10 unit in 1,000 mls @ 100 mls/hr IV .CONTINUOUS [facility] Last Admin: 08/03/18 14:32 Dose: 100 mls/hr Nalbuphine HCl (Nubain) 10 mg IVPUSH Q2H PRN PRN Reason: pain Ondansetron HCl (Zofran) 4 mg IVPUSH Q4H PRN PRN Reason: Nausea/Vomiting Sodium Chloride (Saline Flush) 10 ml FLUSH ASDIRECTED PRN PRN Reason: Keep Vein Open
== END 2018-08-04 18:15 | disposition home or self-care (01) | DRG 560 ==
LOC: JD.OBCHECK 12:11 → JD.OB 12:15 → JD.OBCHECK 12:34 → OBSVTOIN 14:29 → JD.OB 14:30
PROVIDERS: ADMIT Obstetrics & Gynecology; ATTEND Obstetrics & Gynecology
PROC: 10E0XZZ Delivery of Products of Conception, External Approach (ICD-10-PCS; principal; 2018-08-03)
PROC: 6A550ZT Pheresis of Cord Blood Stem Cells, Single (ICD-10-PCS; principal; 2018-08-03)
PROC: 00HU33Z Insertion of Infusion Device into Spinal Canal, Percutaneous Approach (ICD-10-PCS; 2018-08-03)
PROC: 3E0R3BZ Introduction of Anesthetic Agent into Spinal Canal, Percutaneous Approach (ICD-10-PCS; 2018-08-03)
DX: O48.0 Post-term pregnancy (principal); Z3A.40 40 weeks gestation of pregnancy; O62.3 Precipitate labor; Z37.0 Single live birth; O99.62 Diseases of the digestive system complicating childbirth; K21.9 Gastro-esophageal reflux disease without esophagitis
CPT/HCPCS: 36415; 51701; 59025; 59409; 85025; 86592; A9270-GY; J2590; J3010; J3490; J7120

== ENCOUNTER 2020-04-05 11:42 | Inpatient (IN) | payer BC ==
[2020-04-05] MEDS ORDERED: Sodium Chloride 0.9% 10 ML Syringe FLUSH PRN (11:55)
[2020-04-05] MEDS ORDERED: Lidocaine 1% 50 ML MDV INJECT ONE (11:55)
[2020-04-05] MEDS ORDERED: Nalbuphine 10 MG/1 ML Vial IVPUSH PRN (11:55)
[2020-04-05] MEDS ORDERED: Lactated Ringers 1,000 ML IV SCH (12:00)
[2020-04-05] MEDS ORDERED: Oxytocin/Lactated Ringers 10 UNIT/1,000 ML BAG IV SCH ×2 (12:00)
[2020-04-05] MEDS ORDERED: fentaNYL 100 MCG/2 ML SDV EPIDUR PRN (13:41)
[2020-04-05] MEDS ORDERED: Ondansetron 4 MG/2 ML SDV IVPUSH PRN (13:41)
[2020-04-05] MEDS ORDERED: ePHEDrine 50 MG/ML SDV IVPUSH PRN (13:41)
[2020-04-05] MEDS ORDERED: Bupivacaine/fentaNYL/NS 100 ML Bag EPIDUR SCH (13:45)
--- NOTE | 2020-04-05 13:45 | PCM.PREANE ---
Preanesthetic Assessment - Procedure Proposed Procedure: Epidural - Anesthesia/Transfusion/Family Hx Anesthesia History: Prior Anesthesia Without Reaction Family History of Anesthesia Reaction: No Transfusion History: No Prior Transfusion(s) Intubation History: Unknown - Review of Systems General: No Symptoms Pulmonary: No Symptoms Cardiovascular: No Symptoms Gastrointestinal: No Symptoms (GERD) Neurological: No Symptoms (Lower back pain from athletic injuries in the past.) Other: Reports: None - Physical Assessment NPO Status Date: 04/05/20 NPO Status Time: 08:00 Vital Signs: HR:76 B/P:138/80 Resp:16 Temp:98.5 Sat:99% Height: 1.83 m Weight: 87.09 kg ASA Class: 2 Mental Status: Alert & Oriented x3 Airway Class: Mallampati = 2 Dentition: Reports: Normal Dentition, Caries Thyro-Mental Finger Breadths: 3 Mouth Opening Finger Breadths: 3 ROM/Head Extension: Full Lungs: Clear to Auscultation, Normal Respiratory Effort Cardiovascular: Regular Rate, Regular Rhythm, No Murmurs - Lab Values: Laboratory Last Values WBC 8.75 K/mm3 (3.98-10.04) 04/05/20 12:15 RBC 3.96 M/mm3 (3.98-5.22) L 04/05/20 12:15 Hgb 12.9 gm/dl (11.2-15.7) D 04/05/20 12:15 Hct 37.9 % (34.1-44.9) 04/05/20 12:15 MCV 95.7 fl (79.4-94.8) H 04/05/20 12:15 MCH 32.6 pg (25.6-32.2) H 04/05/20 12:15 MCHC 34.0 g/dl (32.2-35.5) 04/05/20 12:15 RDW Std Deviation 44.0 fL (36.4-46.3) 04/05/20 12:15 Plt Count 181 K/mm3 (182-369) L 04/05/20 12:15 MPV 10.5 fl (9.4-12.3) 04/05/20 12:15 Neut % (Auto) 78.4 % (34.0-71.1) H 04/05/20 12:15 Lymph % (Auto) 16.0 % (19.3-51.7) L 04/05/20 12:15 [place] % (Auto) 4.6 % (4.7-12.5) L 04/05/20 12:15 Eos % (Auto) 0.6 (0.7-5.8) L 04/05/20 12:15 Baso % (Auto) 0.2 % (0.1-1.2) 04/05/20 12:15 Neut # (Auto) 6.86 K/mm3 (1.56-6.13) H 04/05/20 12:15 Lymph # (Auto) 1.40 K/mm3 (1.18-3.74) 04/05/20 12:15 [place] # (Auto) 0.40 K/mm3 (0.24-0.36) H 04/05/20 12:15 Eos # (Auto) 0.05 K/mm3 (0.04-0.36) 04/05/20 12:15 Baso # (Auto) 0.02 K/mm3 (0.01-0.08) 04/05/20 12:15 SARS-CoV-2 RNA (ARIEL) Negative (NEGATIVE) 04/05/20 12:15 Blood Type B POSITIVE 04/05/20 12:15 Gel Antibody Screen Negative 04/05/20 12:15 Above labs reviewed and noted and within acceptable ranges to proceed with epidural if desired. - Allergies Allergies/Adverse Reactions: Allergies Allergy/AdvReac Type Severity Reaction Status Date / Time No Known Allergies Allergy Verified 12/01/16 09:34 - Anesthesia Plan Pre-Op Medication Ordered: None - Acknowledgements Anesthesia Type Planned: Epidural Pt an Appropriate Candidate for the Planned Anesthesia: Yes Alternatives and Risks of Anesthesia Discussed w Pt/Guardian: Yes Pt/Guardian Understands and Agrees with Anesthesia Plan: Yes PreAnesthesia Questionnaire - Past Health History Medical/Surgical History: Denies Medical/Surgical History Cardiovascular History: Reports: None Respiratory History: Reports: None Gastrointestinal History: Reports: GERD 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: - Past Surgical History HEENT Surgical History: Reports: Oral Surgery Other HEENT Surgeries/Procedures: wisdom teeth - HOME MEDS Home Medications: Home Meds Pnv No.95/Ferrous Fum/Folic AC [ Tablet] 1 each PO DAILY 12/01/16 [History] Acetaminophen [Tylenol] 650 mg PO Q4H PRN tablet 08/04/18 [Rx] Ibuprofen [Motrin] 600 mg PO Q4H PRN tablet 08/04/18 [Rx] - CURRENT (IN HOUSE) MEDS Current Meds: Current Medications Ephedrine Sulfate (Ephedrine Sulfate) 5 mg IVPUSH ASDIRECTED PRN PRN Reason: Hypotension Fentanyl (Sublimaze) 100 mcg EPIDUR Q3H PRN PRN Reason: Pain Fentanyl/Bupivacaine HCl (Fentanyl/Bupivacaine/Ns 2 Mcg-0.125% 100 Ml) 100 ml EPIDUR ASDIRECTED JUDITH Oxytocin/Lactated Ringer's (Pitocin In Lr 10 Units/1,000 Ml) 10 unit in 1,000 mls @ 12 mls/hr IV TITRATE JUDITH; Protocol Oxytocin/Lactated Ringer's (Pitocin In Lr 10 Units/1,000 Ml) 10 unit in 1,000 mls @ 500 mls/hr IV .CONTINUOUS JUDITH Lactated Ringer's (Ringers, Lactated) 1,000 mls @ 100 mls/hr IV ASDIRECTED JUDITH Miscellaneous Medication (Phenylephrine 1 Mg/10 Ml-Ns) 0 mg IVPUSH ONETIME ONE Stop: 04/05/20 13:42 Nalbuphine HCl (Nubain) 10 mg IVPUSH Q2H PRN PRN Reason: Pain Ondansetron HCl (Zofran) 4 mg IVPUSH ONETIME PRN PRN Reason: Nausea/Vomiting Sodium Chloride (Saline Flush) 10 ml FLUSH ASDIRECTED PRN PRN Reason: Keep Vein Open Discontinued Medications Lidocaine HCl (Xylocaine 1%) 50 ml INJECT ONETIME ONE Stop: 04/05/20 11:56
--- NOTE | 2020-04-05 15:40 | PCM.LDHP ---
L&D History of Present Illness - General Date of Service: 04/05/20 Admit Problem/Dx: Patient Status Order with Admit Dx/Problem 04/05/20 11:56 Patient Status [ADT] Routine Admission Diagnosis/Problem Admission Diagnosis/Problem 04/05/20 15:31 Katharina is a 29-year-old 3 para 2-0-0-2 white female who is presently at 1-5/7 weeks gestational age with an JOSE of 04/07/2020 was admitted for induction of labor. Source of Information: Patient History Limitations: Reports: No Limitations - History of Present Illness Introduction:: Katharina is a 29-year-old 3 para 2-0-0-2 white female who is presently at 1-5/7 weeks gestational age with an JOSE of 04/07/2020 was admitted for induction of labor. The procedure and process of induction of labor, its risks, benefits, alternatives of care including allowing for natural onset of labor are discussed in detail with the patient. She appears understand, wishes to proceed. 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 She has last menstrual period which was unknown. Her hCG was positive on 08/18/2019. Her cycles are not regular and she was not certain about the onset of her last menstrual period. Her previous pregnancies include the followin. Male born 12/02/2018 at 40 weeks gestational age after 3 hours of labor7 pounds 11 ounces-NSVDSaint Luciano in [place]-dural used in labor- child's name is Giorgio. 2. Female born 08/03/2017 at 40 weeks gestational age after 4 hours of labor7 pounds 11 ouncesNSVDAlexis in [place]pidural used in laborchild's name is Torres course: Patient was first seen for this at 15-3/7 weeks. She had undergone an ultrasound at 9 weeks gestational age. She was seen on a regular basis. The weight gain during the course of the was from 158 pounds to 191 pounds for a 33.4 pound increase. Her vital signs remained stable throughout the course and her fundal height growth was appropriate. Patient did have an abnormal 1 hour GTT but 3-hour GTT was normal. Her [place] depression screen score on 11/17/2019 was normal. Group B strep screen is negative. Patient had a pericardial effusion on initial ultrasound. This was followed and patient was evaluated by maternal- medicine. Normal dilation was confirmed by maternal- medicineDr. Youssef and the pericardial effusion was felt to be insignificant. Patient plans to breast- feed. She was okay with an epidural but would like to try naturally if possible. Laboratory testing shows blood to be be positive with negative antibody screen. Her hemoglobin is 12.8 g/dL on first visit and platelets are 231,000. She is rubella immune. RPR is nonreactive. Urine cul ture was negative. Hepatitis B surface antigen and HIV assays were both negative as were her chlamydia and gonorrhea tests. Second trimester labs showed hemoglobin 11.2 g/dL with platelets of 200,000. Her 1 hour GTT was mildly abnormal at 135. Her fasting blood sugar was 80. Her 1 hour glucose was 113. 2-hour glucose was 84 and 3-hour glucose was 97. RPR done on 01/16/2020 was negative. Group B strep screen was negative. Allergies: None Medications: 1. vitamins 1 daily 2. Calcium 500 mg tabs daily Medical history: 1. x2 as above 2. Seasonal allergies 3. Pilot teeth extraction. Past surgical history: Unremarkable Family history: Mother and father are alive and well. Father does have high blood pressure. 1 brother 1 sister alive and well. Maternal grandfather with heart disease history. Maternal grandmother is alive and well. Paternal grandfather is alive but has COPD. Paternal grandmother is secondary to type 2 diabetes complications and heart disease. There is no family history of cancer, heart disease otherwise, bleeding or clotting disorders. Social history: Patient is . is Contreras. 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 She is a college graduate. She and her family live in [place], [place]. She does not use any significant also alcohol, drugs or tobacco. Review of systems: In general patient has no complaints. AV has been active. Skin: Negative Lungs: No infectious symptoms or shortness of breath Cardiovascular: No chest pain or exercise intolerance Breasts: changes, no lumps, changes in size, pain, dimpling, discharge or axillary or supraclavicular concerns. GI: Negative : Changes associated with . Musculoskeletal: Negative Neurological: Negative Physical exam: In general the patient is well-developed, well-nourished, pleasant female of stated age in no acute distress. Skin is warm dry without lesions. HEENT, neck and back within normal limits. Lungs are clear with good breath sounds in all lung gtz. Cardiovascular exam shows regular and rhythm without murmurs. Breast exam deferred having been done at first medical visit and found to be normal. It is not repeated at this time. Abdomen is gravid with fundal height on last evaluation clinic on 03/29/2020 at 36 weeks. Baby in vertex presentation by Herman maneuvers. Genital per digital exam on last evaluation showed 2+ centimeters, 80% effaced, soft, -3, mid position. Extremities and neurological exam are grossly within normal limits. - Related Data Allergies/Adverse Reactions: Allergies Allergy/AdvReac Type Severity Reaction Status Date / Time No Known Allergies Allergy Verified 12/01/16 09:34 Home Medications: Home Meds Pnv No.95/Ferrous Fum/Folic AC [ Tablet] 1 each PO DAILY 12/01/16 [History] Acetaminophen [Tylenol] 650 mg PO Q4H PRN tablet 08/04/18 [Rx] Past Medical History - Past Health History Medical/Surgical History: Denies Medical/Surgical History Cardiovascular History: Reports: None Respiratory History: Reports: None Gastrointestinal History: Reports: GERD BIOLOGY TUTOR History: Reports: - Past Surgical History HEENT Surgical History: Reports: Oral Surgery Other HEENT Surgeries/Procedures: wisdom teeth Social & Family History - Family History Family Medical History: No Pertinent Family History - Tobacco Use Tobacco Use Status *Q: Never Tobacco User Second Hand Smoke Exposure: No - Caffeine Use Caffeine Use: Reports: None - Recreational Drug Use Recreational Drug Use: No H&P Review of Systems - Review of Systems: Review Of Systems: See Below L&D Exam - Exam Exam: See Below - Vital Signs Vital Signs: Last Vital Signs Temp 36.9 C 04/05/20 11:55 Pulse 76 04/05/20 11:55 Resp 15 04/05/20 11:55 BP 138/80 04/05/20 11:55 Pulse Ox Weight: 87.09 kg - Patient Data Lab Results Last 24 hrs: Laboratory Results - last 24 hr 04/05/20 04/05/20 04/05/20 Range/Units 12:15 12:15 12:15 WBC 8.75 (3.98-10.04) K/mm3 RBC 3.96 L (3.98-5.22) M/mm3 Hgb 12.9 D (11.2-15.7) gm/dl Hct 37.9 (34.1-44.9) % MCV 95.7 H (79.4-94.8) fl MCH 32.6 H (25.6-32.2) pg MCHC 34.0 (32.2-35.5) g/dl RDW Std Deviation 44.0 (36.4-46.3) fL Plt Count 181 L (182-369) K/mm3 MPV 10.5 (9.4-12.3) fl Neut % (Auto) 78.4 H (34.0-71.1) % Lymph % (Auto) 16.0 L (19.3-51.7) % [place] % (Auto) 4.6 L (4.7-12.5) % Eos % (Auto) 0.6 L (0.7-5.8) Baso % (Auto) 0.2 (0.1-1.2) % Neut # (Auto) 6.86 H (1.56-6.13) K/mm3 Lymph # (Auto) 1.40 (1.18-3.74) K/mm3 [place] # (Auto) 0.40 H (0.24-0.36) K/mm3 Eos # (Auto) 0.05 (0.04-0.36) K/mm3 Baso # (Auto) 0.02 (0.01-0.08) K/mm3 SARS-CoV-2 RNA (ARIEL) Negative (NEGATIVE) Blood Type B POSITIVE Gel Antibody Screen Negative Result Diagrams: 04/05/20 12:15 Problem List Initiated/Reviewed/Updated: Yes Orders Last 24hrs: Active Orders 24 hr Category Date Time Status Patient Status [ADT] Routine ADT 04/05/20 11:56 Active Activity as Tolerated [RC] PFP Care 04/05/20 11:55 Active Communication Order [RC] ASDIRECTED Care 04/05/20 11:55 Active Heart Tones [RC] ASDIRECTED Care 04/05/20 11:56 Active Non Stress Test [RC] PER UNIT ROUTINE Care 04/05/20 11:55 Active Notify Provider [RC] ASDIRECTED Care 04/05/20 13:41 Active Notify Provider [RC] PFP Care 04/05/20 11:55 Active Notify Provider [RC] PRN Care 04/05/20 11:55 Active Oxygen Therapy [RC] ASDIRECTED Care 04/05/20 13:41 Active Peripheral IV Care [RC] . DIRECTED Care 04/05/20 11:56 Active Pulse Oximetry [RC] ASDIRECTED Care 04/05/20 13:41 Active Pump Management, Intrathecal [RC] ASDIRECTED Care 04/05/20 11:59 Active Urinary Catheter Assessment [RC] ASDIRECTED Care 04/05/20 11:55 Active Vital Signs [RC] PER UNIT ROUTINE Care 04/05/20 11:55 Active Regular Diet [DIET] Diet 04/05/20 Breakfast Active RAPID PLASMA REAGIN,RPR [CHEM] Routine Lab 04/05/20 12:15 Received Bupivacaine/fentaNYL/NS [fentaNYL/Bupivacaine/NS 2 MCG- Med 04/05/20 13:45 Active 0.125% 100 ML] 100 ml EPIDUR ASDIRECTED Lactated Ringers [Ringers, Lactated] 1,000 ml Med 04/05/20 12:00 Active IV ASDIRECTED Nalbuphine [Nubain] Med 04/05/20 11:55 Active 10 mg IVPUSH Q2H PRN Ondansetron [Zofran] Med 04/05/20 13:41 Active 4 mg IVPUSH ONETIME PRN Oxytocin/Lactated Ringers [Pitocin in LR 10 Units/1,000 Med 04/05/20 12:00 Active ML] 10 unit in 1,000 ml IV .CONTINUOUS Oxytocin/Lactated Ringers [Pitocin in LR 10 Units/1,000 Med 04/05/20 12:00 Active ML] 10 unit in 1,000 ml IV TITRATE Sodium Chloride 0.9% [Saline Flush] Med 04/05/20 11:55 Active 10 ml FLUSH ASDIRECTED PRN ePHEDrine [ePHEDrine sulfate] Med 04/05/20 13:41 Active 5 mg IVPUSH ASDIRECTED PRN fentaNYL [Sublimaze] Med 04/05/20 13:41 Active 100 mcg EPIDUR Q3H PRN Electronic Heart Tones Ext w TOCO [WOMSER] Oth 04/05/20 11:55 Ordered Routine Electronic Heart Tones Internal [WOMSER] Per Unit Oth 04/05/20 11:55 Ordered Routine Peripheral IV Insertion Adult [OM.PC] Routine Oth 04/05/20 11:55 Ordered Resuscitation Status Routine Resus Stat 04/05/20 11:55 Ordered Medication Orders Ephedrine Sulfate (Ephedrine Sulfate) 5 mg IVPUSH ASDIRECTED PRN PRN Reason: Hypotension Fentanyl (Sublimaze) 100 mcg EPIDUR Q3H PRN PRN Reason: Pain Fentanyl/Bupivacaine HCl (Fentanyl/Bupivacaine/Ns 2 Mcg-0.125% 100 Ml) 100 ml EPIDUR ASDIRECTED JUDITH Oxytocin/Lactated Ringer's (Pitocin In Lr 10 Units/1,000 Ml) 10 unit in 1,000 mls @ 12 mls/hr IV TITRATE JUDITH; Protocol Oxytocin/Lactated Ringer's (Pitocin In Lr 10 Units/1,000 Ml) 10 unit in 1,000 mls @ 500 mls/hr IV .CONTINUOUS JUDITH Lactated Ringer's (Ringers, Lactated) 1,000 mls @ 100 mls/hr IV ASDIRECTED JUDITH Nalbuphine HCl (Nubain) 10 mg IVPUSH Q2H PRN PRN Reason: Pain Ondansetron HCl (Zofran) 4 mg IVPUSH ONETIME PRN PRN Reason: Nausea/Vomiting Sodium Chloride (Saline Flush) 10 ml FLUSH ASDIRECTED PRN PRN Reason: Keep Vein Open Assessment/Plan Comment:: 1. Katharina is a 29-year-old 3 para 2-0-0-2 white female who is presently at 1-5/7 weeks gestational age with an JOSE of 04/07/2020 was admitted for induction of labor. 2. Group B strep screen negative. 3. Patient is okay with epidural but would like to do it naturally if possible. 4. Patient plans to breast-feed. 5. History of pericardial effusionminimalfelt to be insignificant by MFM. 6. Normal 1 hour GTT 7. Patient's had a flu shot on 02/21/2020. Tdap given on 01/26/2020. Patient is rubella immune. Varicella immunization 11/26/2012. Hepatitis B immunization 2003. Meningococcal immunization March 2007. Td November 2003. Plan: 1. AROM induction of labor with Pitocin augmentation as indicated. 2. Epidural if so desired by patient. 3. Anticipate 4. Covid19 testing, RPR and CBC upon admission per protocol 5. Routine labor care.
--- NOTE | 2020-04-05 17:34 | PCM.SN.2 ---
- Free Text/Narrative Note: Delivery note: Katharina is a 29-year-old 3 para 3-0-0-3 white female who is presently at 39-5/7 weeks gestational age with an JOSE of 04/07/2020 who was admitted for induction of labor proximately 1230 hrs. on 10/04/2019. The procedure and process of induction of labor, its risks, benefits, alternatives of care including allowing for natural onset of labor are discussed in detail with the patient. Patient underwent AROM for induction of labor. Labor started slowly but then progressed rapidly after 5 cm dilation. heart tones reassuring. Intention was for patient to get an epidural but she precipitously delivered. Baby came in a direct occiput anterior position over an intact perineum. Nuchal cord was around the neck loosely x1 and reduced over the baby's body. Delivery was at 1650 hrs. on 04/05/2020. Baby was placed on mom's abdomen. Labor cord clamping for 2 to 3 minutes after which the father the baby Contreras cut the clamped cord. Pitocin was increased to 500 cc an hour to facilitate increase in uterine tone and decrease likelihood of bleeding. The baby was a male weighing 3430 g (7 pounds 9 ounces) and was 19.5 inches in length. Perineum was intact. Cord blood was obtained. The umbilical cord had 3 vessels. The placenta delivered spontaneously in a Munson presentation at 1656 hrs. It appeared intact and complete and was discarded per patient desire. Estimated blood loss was 200 cc. Patient plans to breast-feed. Condition: Good.
[2020-04-05] MEDS ORDERED: Docusate Sodium 100 MG Cap PO PRN (18:05)
[2020-04-05] MEDS ORDERED: Witch Hazel Medicated Pads 40/Jar TOP PRN (18:05)
[2020-04-05] MEDS ORDERED: Ibuprofen 600 MG Tab PO PRN (18:05)
[2020-04-05] MEDS ORDERED: Benzocaine/Menthol 20%-0.5% Spray 56 GM Canister TOP PRN (18:05)
[2020-04-05] MEDS ORDERED: Acetaminophen 325 MG Tab PO PRN (18:05)
[2020-04-06] MEDS ORDERED: Prenatal Multivitamin with Calcium/Folic Acid/Iron Tab PO SCH (09:00)
--- NOTE | 2020-04-06 10:21 | PCM.DCSUM1 ---
Discharge Summary - Hospital Course Free Text/Narrative:: Katharina is a 29-year-old 3 para 3-0-0-3 white female who is presently at 39-5/7 weeks gestational age with an JOSE of 04/07/2020 who was admitted for induction of labor proximately 1230 hrs. on 10/04/2019. The procedure and process of induction of labor, its risks, benefits, alternatives of care including allowing for natural onset of labor are discussed in detail with the patient. Patient underwent AROM for induction of labor. Labor started slowly but then progressed rapidly after 5 cm dilation. heart tones reassuring. Intention was for patient to get an epidural but she precipitously delivered. Baby came in a direct occiput anterior position over an intact perineum. Nuchal cord was around the neck loosely x1 and reduced over the baby's body. Delivery was at 1650 hrs. on 04/05/2020. Baby was placed on mom's abdomen. Labor cord clamping for 2 to 3 minutes after which the father the baby Contreras cut the clamped cord. Pitocin was increased to 500 cc an hour to facilitate increase in uterine tone and decrease likelihood of bleeding. The baby was a male infant weighing 3430 g (7 pounds 9 ounces) and was 19.5 inches in length. Perineum was intact. Cord blood was obtained. The umbilical cord had 3 vessels. The placenta delivered spontaneously in a Munson presentation at 1656 hrs. It appeared intact and complete and was discarded per patient desire. Estimated blood loss was 200 cc. Patient plans to breast-feed. patient is done well. She is ambulating well, voiding without concerns and has minimal lochia. She is nursing without problems. She is desiring discharge home after 24 hours postdelivery. Condition: Good. Diagnosis: Stroke: No - Discharge Data Discharge Date: 04/06/20 Discharge Disposition: Home, Self-Care 01 Condition: Good - Referral to Home Health Primary Care Physician: Jerel Martinez MD - Patient Instructions Diet: Regular Diet as Tolerated (Nursing diet with increased calories and calcium as recommended.) Activity: As Tolerated Activity, Other: No intercourse or tampons until bleeding resolves Driving: May Drive Today Showering/Bathing: May Shower Showering/Bathing, Other: May take a bath - Discharge Plan Home Medications: Home Meds Pnv No.95/Ferrous Fum/Folic AC [ Tablet] 1 each PO DAILY 12/01/16 [History] Acetaminophen [Tylenol] 650 mg PO Q4H PRN tablet 08/04/18 [Rx] Docusate Sodium [Colace] 100 mg PO BID PRN cap 04/06/20 [Rx] Ibuprofen [Motrin] 600 mg PO Q4H PRN tablet 04/06/20 [Rx] Referrals: Jerel Martinez MD [Primary Care Provider] - (Return to clinicDr. Martinez3 weeks) - Discharge Summary/Plan Comment DC Time >30 min.: No Discharge Summary/Plan Comment: Discharge instructions: 1. Discharge home 2. Diet, activity and follow-up discussed with patient. Recommend nursing diet w ith increased calories and calcium. 3. Precautions given concern increased pain, bleeding, temperature, signs/symptoms of DVT/PE. 4. Medications per home medication was printed, discussed with and given to the patient. 5. Return to clinic-Dr. Martinez[facility] in 2-4 weeks. Diagnosis: Term -delivered Condition: Good - Patient Data Vitals - Most Recent: Last Vital Signs Temp 36.5 C 04/06/20 08:16 Pulse 65 04/06/20 08:16 Resp 15 04/06/20 08:16 BP 121/85 04/06/20 08:16 Pulse Ox 98 04/06/20 08:16 Weight - Most Recent: 87.09 kg I&O - Last 24 hours: Intake & Output 04/05/20 04/06/20 04/06/20 22:59 06:59 14:59 Intake Total 1400 180 Balance 1400 180 Lab Results - Last 24 hrs: Laboratory Results - last 24 hr 04/05/20 04/05/20 04/05/20 Range/Units 12:15 12:15 12:15 WBC 8.75 (3.98-10.04) K/mm3 RBC 3.96 L (3.98-5.22) M/mm3 Hgb 12.9 D (11.2-15.7) gm/dl Hct 37.9 (34.1-44.9) % MCV 95.7 H (79.4-94.8) fl MCH 32.6 H (25.6-32.2) pg MCHC 34.0 (32.2-35.5) g/dl RDW Std Deviation 44.0 (36.4-46.3) fL Plt Count 181 L (182-369) K/mm3 MPV 10.5 (9.4-12.3) fl Neut % (Auto) 78.4 H (34.0-71.1) % Lymph % (Auto) 16.0 L (19.3-51.7) % [place] % (Auto) 4.6 L (4.7-12.5) % Eos % (Auto) 0.6 L (0.7-5.8) Baso % (Auto) 0.2 (0.1-1.2) % Neut # (Auto) 6.86 H (1.56-6.13) K/mm3 Lymph # (Auto) 1.40 (1.18-3.74) K/mm3 [place] # (Auto) 0.40 H (0.24-0.36) K/mm3 Eos # (Auto) 0.05 (0.04-0.36) K/mm3 Baso # (Auto) 0.02 (0.01-0.08) K/mm3 RPR Non-reactive (NONREACTIVE) SARS-CoV-2 RNA (ARIEL) (NEGATIVE) Blood Type B POSITIVE Gel Antibody Screen Negative 04/05/20 Range/Units 12:15 WBC (3.98-10.04) K/mm3 RBC (3.98-5.22) M/mm3 Hgb (11.2-15.7) gm/dl Hct (34.1-44.9) % MCV (79.4-94.8) fl MCH (25.6-32.2) pg MCHC (32.2-35.5) g/dl RDW Std Deviation (36.4-46.3) fL Plt Count (182-369) K/mm3 MPV (9.4-12.3) fl Neut % (Auto) (34.0-71.1) % Lymph % (Auto) (19.3-51.7) % [place] % (Auto) (4.7-12.5) % Eos % (Auto) (0.7-5.8) Baso % (Auto) (0.1-1.2) % Neut # (Auto) (1.56-6.13) K/mm3 Lymph # (Auto) (1.18-3.74) K/mm3 [place] # (Auto) (0.24-0.36) K/mm3 Eos # (Auto) (0.04-0.36) K/mm3 Baso # (Auto) (0.01-0.08) K/mm3 RPR (NONREACTIVE) SARS-CoV-2 RNA (ARIEL) Negative (NEGATIVE) Blood Type Gel Antibody Screen Med Orders - Current: Current Medications Acetaminophen (Tylenol) 650 mg PO Q4H PRN PRN Reason: mild pain or fever Benzocaine/Menthol (Dermoplast Pain Relief [place]) 0 gm TOP ASDIRECTED PRN PRN Reason: Perineal Comfort Measure Last Admin: 04/05/20 18:15 Dose: 1 can Documented by: Docusate Sodium (Colace) 100 mg PO BID PRN PRN Reason: Constipation Ibuprofen (Motrin) 600 mg PO Q4H PRN PRN Reason: Mild pain or fever Prenat Multivit/[place]/Iron/Folic Ac ( Plus Iron) 1 each PO DAILY [facility] Asya Miranda ([place]) 1 pad TOP ASDIRECTED PRN PRN Reason: Perineal Comfort Measure Last Admin: 04/05/20 18:15 Dose: 1 tub Documented by: Discontinued Medications Ephedrine Sulfate (Ephedrine Sulfate) 5 mg IVPUSH ASDIRECTED PRN PRN Reason: Hypotension Fentanyl (Sublimaze) 100 mcg EPIDUR Q3H PRN PRN Reason: Pain Fentanyl/Bupivacaine HCl (Fentanyl/Bupivacaine/Ns 2 Mcg-0.125% 100 Ml) 100 ml EPIDUR ASDIRECTED JUDITH Oxytocin/Lactated Ringer's (Pitocin In Lr 10 Units/1,000 Ml) 10 unit in 1,000 mls @ 12 mls/hr IV TITRATE JUDITH; Protocol Oxytocin/Lactated Ringer's (Pitocin In Lr 10 Units/1,000 Ml) 10 unit in 1,000 mls @ 500 mls/hr IV .CONTINUOUS JUDITH Last Admin: 04/05/20 16:50 Dose: 500 mls/hr Documented by: Lactated Ringer's (Ringers, Lactated) 1,000 mls @ 100 mls/hr IV ASDIRECTED JUDITH Last Admin: 04/05/20 16:22 Dose: 100 mls/hr Documented by: Lidocaine HCl (Xylocaine 1%) 50 ml INJECT ONETIME ONE Stop: 04/05/20 11:56 Last Admin: 04/05/20 19:10 Dose: Not Given Documented by: Miscellaneous Medication (Phenylephrine 1 Mg/10 Ml-Ns) 0 mg IVPUSH ONETIME ONE Stop: 04/05/20 13:42 Last Admin: 04/05/20 19:11 Dose: Not Given Documented by: Nalbuphine HCl (Nubain) 10 mg IVPUSH Q2H PRN PRN Reason: Pain Ondansetron HCl (Zofran) 4 mg IVPUSH ONETIME PRN PRN Reason: Nausea/Vomiting Sodium Chloride (Saline Flush) 10 ml FLUSH ASDIRECTED PRN PRN Reason: Keep Vein Open
[2020-04-06 19:43] VITALS: BP 119/75; PULSE 82
== END 2020-04-06 18:00 | disposition home or self-care (01) | DRG 560 ==
LOC: JD.OB 11:42 → JD.OBCHECK 11:42 → JD.OB 11:56 → JD.OBCHECK 11:56 → OBSVTOIN 16:50 → JD.OB 16:51
PROVIDERS: ADMIT Obstetrics & Gynecology; ATTEND Obstetrics & Gynecology
PROC: 10E0XZZ Delivery of Products of Conception, External Approach (ICD-10-PCS; principal; 2020-04-05)
PROC: 10907ZC Drainage of Amniotic Fluid, Therapeutic from Products of Conception, Via Natural or Artificial Opening (ICD-10-PCS; 2020-04-05)
PROC: 3E0R3BZ Introduction of Anesthetic Agent into Spinal Canal, Percutaneous Approach (ICD-10-PCS; 2020-04-05)
DX: O69.81X0 Labor and delivery complicated by cord around neck, without compression, not applicable or unspecified (principal); Z37.0 Single live birth; O99.62 Diseases of the digestive system complicating childbirth; K21.9 Gastro-esophageal reflux disease without esophagitis; Z20.828 Contact with and (suspected) exposure to other viral communicable diseases; Z3A.39 39 weeks gestation of pregnancy
CPT/HCPCS: 36415; 59025; 59409; 85025; 86592; 86850; 86900; 86901; A9270-GY; J2590; J7120; U0002